=== PATIENT | male | born 1945 | race Caucasian/White ===

== ENCOUNTER 2018-03-04 10:17 | Inpatient (IN) | payer MEDICARE, MEDICAID ==
[~2018-03-04] VITALS: Ht 182.9 cm; Wt 67.0 kg
[~2018-03-04 10:17] MED LIST: AMLO-512 PO; ASCO500 PO; ASPI-825 PO; CARV25 PO; ESCI10TA PO; TAMS0.4C32 PO
[2018-03-04] MEDS ORDERED: OLANZapine 5 MG RAPDIS TABLET PO PRN (11:00)
[2018-03-04 11:07] LABS: AMPHET/METH SCREEN,URINE NEGATIVE (NEGATIVE); BARBITURATE SCREEN, URINE NEGATIVE (NEGATIVE); BENZODIAZEPINES SCREEN,URINE NEGATIVE (NEGATIVE); CANNABINOID SCREEN,URINE NEGATIVE (NEGATIVE); COCAINE SCREEN,URINE NEGATIVE (NEGATIVE); METHADONE SCREEN, URINE NEGATIVE (NEGATIVE); OPIATE SCREEN,URINE NEGATIVE (NEGATIVE); PHENCYCLIDINE SCREEN,URINE NEGATIVE (NEGATIVE)
[2018-03-04 11:11] LABS: BASOPHILS % (AUTO) 0.9 % (0.0-2.0); EOSINOPHILS % (AUTO) 2.7 % (1.0-6.0); HEMATOCRIT 34.8 % (41-53); HEMOGLOBIN 12.1 g/dL (13.5-17.5); LYMPHOCYTES # (AUTO) 3.8 K/uL (1.0-4.8); LYMPHOCYTES % (AUTO) 50.6 % (22.0-44.0); MEAN CORPUSCULAR HEMOGLOBIN 35.9 pg (26.0-34.0); MEAN CORPUSCULAR HGB CONC 34.7 G/dL (31.0-37.0); MEAN CORPUSCULAR VOLUME 104 fL (80-100); MONOCYTES # (AUTO) 0.9 K/uL (0.1-1.0); MONOCYTES % (AUTO) 12.5 % (2.0-9.0); NEUTROPHILS # (AUTO) 2.5 K/uL (1.8-7.7); NEUTROPHILS % (AUTO) 33.3 % (40.0-70.0); PLATELET COUNT (AUTO) 185 K/uL (150-450); RED BLOOD CELL COUNT(AUTO) 3.37 MIL/uL (4.50-5.90); RED CELL DISTRIBUTION WIDTH 14.2 % (11.5-14.5)
[2018-03-04 11:15] LABS: CALCIUM, TOTAL 7.9 mg/dL (8.8-10.5); CREATININE 1.4 mg/dL (0.60-1.30); POTASSIUM 4.2 mmol/L (3.5-5.1)
[2018-03-04 11:21] LABS: ALBUMIN 2.6 g/dL (3.4-5.0); BILIRUBIN,TOTAL 0.4 mg/dL (0.1-1.0)
[2018-03-04] MEDS ORDERED: LORazepam 1 MG TABLET PO ONE (12:30)
[2018-03-04] MEDS ORDERED: IBUPROFEN 600 MG TABLET PO ONE (12:30)
[2018-03-04 12:55] LABS: APPEARANCE,URINE CLEAR (CLEAR); BILIRUBIN,URINE NEGATIVE (NEGATIVE); GLUCOSE, URINE (UA) NEGATIVE (NEGATIVE); KETONES,URINE NEGATIVE (NEGATIVE); LEUKOCYTE ESTERASE ,URINE NEGATIVE (NEGATIVE); NITRATE,URINE NEGATIVE (NEGATIVE); OCCULT BLOOD,URINE NEGATIVE (NEGATIVE); PROTEIN,URINE NEGATIVE (NEGATIVE); UROBILINOGEN,URINE 0.2 mg/dL (<=1.0)
[2018-03-04] MEDS: TAMSULOSIN HCL 0.4 MG CAPSULE PO SCH (23:56)
[2018-03-05] MEDS: ASPIRIN 81 MG CHEWABLE TABLET PO SCH (08:06)
[2018-03-05 08:30] LABS: CHOL/HDL RATIO 1.2 (4.2-7.3); FREE T4 (FREE THYROXINE) 0.72 ng/dL (0.76-1.46); MAGNESIUM 1.4 mg/dL (1.80-2.40); THYROID STIMULATING HORMONE 2.22 uIU/mL (0.36-3.74)
[2018-03-05 08:40] VITALS: BP 135/75
[2018-03-05] MEDS ORDERED: AmLODIPine BESYLATE 2.5 MG TABLET PO SCH (09:00)
[2018-03-05] MEDS: ASCORBIC ACID 500 MG TABLET PO SCH (09:31)
[2018-03-05] MEDS: CARVEDILOL 6.25 MG TABLET PO SCH ×2 (09:31→17:00)
[2018-03-05 19:45] VITALS: BP 142/93
[2018-03-05 20:40] VITALS: BP 135/75
[2018-03-05] MEDS: TAMSULOSIN HCL 0.4 MG CAPSULE PO SCH (20:52)
[2018-03-05] MEDS ORDERED: PNEUMOCOCCAL VACCINE POLYVALENT 0.5 ML VIAL [PPSV23] IM ONE (21:15)
[2018-03-05 21:43] VITALS: BP 140/76
[2018-03-05 22:42] VITALS: BP 145/94
[2018-03-05 22:48] VITALS: BP 145/94
[2018-03-05] MEDS: IBUPROFEN 600 MG TABLET PO PRN (22:57)
[2018-03-06] VITALS (10 sets, daily range): BP systolic 133–153; BP diastolic 77–94
[2018-03-06] MEDS ORDERED: CloNIDine HCL 0.1 MG TABLET PO PRN (07:30)
[2018-03-06] MEDS ORDERED: CYANOCOBALAMIN 1,000 MCG/ML VIAL IM ONE (07:45)
[2018-03-06] MEDS: ASCORBIC ACID 500 MG TABLET PO SCH (08:54)
[2018-03-06] MEDS: MAGNESIUM OXIDE 400 MG TABLET PO SCH (08:54)
[2018-03-06] MEDS: BACITRACIN 28.4 GM OINTMENT TP SCH (08:57)
[2018-03-06] MEDS: ASPIRIN 81 MG CHEWABLE TABLET PO SCH (09:00)
[2018-03-06] MEDS: METOPROLOL SUCCINATE 25 MG ER TABLET PO SCH (09:33)
[2018-03-06] MEDS: FOLIC ACID 1 MG TABLET PO SCH (09:33)
[2018-03-06] MEDS: LORazepam 2 MG TABLET PO PRN ×2 (09:34→20:28)
[2018-03-06] MEDS: ACETAMINOPHEN 325 MG TABLET PO PRN (09:34)
[2018-03-06] MEDS: NICOTINE 21 MG/24 HOUR PATCH TD SCH (09:35)
[2018-03-06] MEDS: DUTASTERIDE 0.5 MG CAPSULE PO SCH (13:08)
[2018-03-06] MEDS: DILTIAZEM HCL CD 120 MG ER CAPSULE PO SCH (13:08)
[2018-03-06] MEDS: THIAMINE HCL 100 MG/ML 2ML VIAL IM SCH (16:17)
[2018-03-06] MEDS: TAMSULOSIN HCL 0.4 MG CAPSULE PO SCH (20:28)
[2018-03-07 01:00] VITALS: BP 117/70
[2018-03-07 04:40] VITALS: BP 149/88
[2018-03-07 08:34] VITALS: BP 120/82
[2018-03-07 08:37] VITALS: BP 120/82
[2018-03-07] MEDS: ASPIRIN 81 MG CHEWABLE TABLET PO SCH (09:00)
[2018-03-07] MEDS: DILTIAZEM HCL CD 120 MG ER CAPSULE PO SCH (09:19)
[2018-03-07] MEDS: METOPROLOL SUCCINATE 25 MG ER TABLET PO SCH (09:19)
[2018-03-07] MEDS: MAGNESIUM OXIDE 400 MG TABLET PO SCH (09:19)
[2018-03-07] MEDS: DUTASTERIDE 0.5 MG CAPSULE PO SCH (09:19)
[2018-03-07] MEDS: ASCORBIC ACID 500 MG TABLET PO SCH (09:19)
[2018-03-07] MEDS: NICOTINE 21 MG/24 HOUR PATCH TD SCH (09:20)
[2018-03-07] MEDS: FOLIC ACID 1 MG TABLET PO SCH (09:21)
[2018-03-07] MEDS: THIAMINE HCL 100 MG/ML 2ML VIAL IM SCH (09:23)
[2018-03-07] MEDS: BACITRACIN 28.4 GM OINTMENT TP SCH (09:35)
[2018-03-07] MEDS: IBUPROFEN 600 MG TABLET PO PRN (09:49)
[2018-03-07] MEDS: LORazepam 2 MG TABLET PO PRN (09:50)
[2018-03-07 16:27] VITALS: BP_SYST 127; BP_SYST 138; BP_DIAS 86; BP_DIAS 95
[2018-03-07] MEDS: TAMSULOSIN HCL 0.4 MG CAPSULE PO SCH (20:34)
[2018-03-08] VITALS: BP 140/83
[2018-03-08] MEDS: LORazepam 2 MG TABLET PO PRN (00:31)
[2018-03-08 01:35] VITALS: BP 140/83
[2018-03-08 08:00] VITALS: BP_SYST 146; BP_DIAS 79; BP_DIAS 95
[2018-03-08] MEDS: ASPIRIN 81 MG CHEWABLE TABLET PO SCH (09:00)
[2018-03-08] MEDS: MAGNESIUM OXIDE 400 MG TABLET PO SCH (09:14)
[2018-03-08] MEDS: METOPROLOL SUCCINATE 25 MG ER TABLET PO SCH (09:14)
[2018-03-08] MEDS: ESCITALOPRAM OXALATE 10 MG TABLET PO SCH (09:14)
[2018-03-08] MEDS: FOLIC ACID 1 MG TABLET PO SCH (09:14)
[2018-03-08] MEDS: ASCORBIC ACID 500 MG TABLET PO SCH (09:15)
[2018-03-08] MEDS: DUTASTERIDE 0.5 MG CAPSULE PO SCH (09:15)
[2018-03-08] MEDS: DILTIAZEM HCL CD 120 MG ER CAPSULE PO SCH (09:15)
[2018-03-08] MEDS: THIAMINE HCL 100 MG/ML 2ML VIAL IM SCH (09:16)
[2018-03-08] MEDS: BACITRACIN 28.4 GM OINTMENT TP SCH (09:16)
[2018-03-08] MEDS: NICOTINE 21 MG/24 HOUR PATCH TD SCH (09:16)
[2018-03-08 09:45] VITALS: BP 131/74
[2018-03-08 16:00] VITALS: BP 137/87
[2018-03-08 16:04] VITALS: BP 137/87
[2018-03-08] MEDS: TAMSULOSIN HCL 0.4 MG CAPSULE PO SCH (20:36)
[2018-03-09 03:19] VITALS: BP 140/81
[2018-03-09] MEDS: LORazepam 2 MG TABLET PO PRN ×3 (03:22→22:39)
[2018-03-09 08:25] VITALS: BP 131/86
[2018-03-09] MEDS: ASPIRIN 81 MG CHEWABLE TABLET PO SCH (09:00)
[2018-03-09] MEDS: THIAMINE HCL 100 MG TABLET PO SCH (09:07)
[2018-03-09] MEDS: ESCITALOPRAM OXALATE 10 MG TABLET PO SCH (09:07)
[2018-03-09] MEDS: METOPROLOL SUCCINATE 25 MG ER TABLET PO SCH (09:07)
[2018-03-09] MEDS: ASCORBIC ACID 500 MG TABLET PO SCH (09:07)
[2018-03-09] MEDS: DILTIAZEM HCL CD 120 MG ER CAPSULE PO SCH (09:08)
[2018-03-09] MEDS: MAGNESIUM OXIDE 400 MG TABLET PO SCH (09:08)
[2018-03-09] MEDS: FOLIC ACID 1 MG TABLET PO SCH (09:08)
[2018-03-09] MEDS: DUTASTERIDE 0.5 MG CAPSULE PO SCH (09:08)
[2018-03-09] MEDS: NICOTINE 21 MG/24 HOUR PATCH TD SCH (09:08)
[2018-03-09 16:04] VITALS: BP 130/87
[2018-03-09] MEDS: TAMSULOSIN HCL 0.4 MG CAPSULE PO SCH (20:34)
[2018-03-10 03:15] VITALS: BP 140/92
[2018-03-10] MEDS: LORazepam 2 MG TABLET PO PRN ×2 (03:15→20:06)
[2018-03-10] MEDS ORDERED: MAG HYDROX/AL HYDROX/SIMETH 30 ML SUSP UDCUP PO PRN (07:00)
[2018-03-10 08:15] VITALS: BP 136/80
[2018-03-10] MEDS: THIAMINE HCL 100 MG TABLET PO SCH (08:39)
[2018-03-10] MEDS: DILTIAZEM HCL CD 120 MG ER CAPSULE PO SCH (08:39)
[2018-03-10] MEDS: METOPROLOL SUCCINATE 25 MG ER TABLET PO SCH (08:39)
[2018-03-10] MEDS: DUTASTERIDE 0.5 MG CAPSULE PO SCH (08:39)
[2018-03-10] MEDS: FOLIC ACID 1 MG TABLET PO SCH (08:39)
[2018-03-10] MEDS: MAGNESIUM OXIDE 400 MG TABLET PO SCH (08:39)
[2018-03-10] MEDS: ESCITALOPRAM OXALATE 10 MG TABLET PO SCH (08:39)
[2018-03-10] MEDS: ASCORBIC ACID 500 MG TABLET PO SCH (08:39)
[2018-03-10] MEDS: NICOTINE 21 MG/24 HOUR PATCH TD SCH (08:40)
[2018-03-10] MEDS: ASPIRIN 81 MG CHEWABLE TABLET PO SCH (08:40)
[2018-03-10 09:35] LABS: ALBUMIN 2.4 g/dL (3.4-5.0); BILIRUBIN,TOTAL 0.2 mg/dL (0.1-1.0); CALCIUM, TOTAL 9.1 mg/dL (8.8-10.5); CREATININE 1.24 mg/dL (0.60-1.30); MAGNESIUM 1.8 mg/dL (1.80-2.40); POTASSIUM 4.2 mmol/L (3.5-5.1)
[2018-03-10 16:17] VITALS: BP 147/91
[2018-03-10] MEDS: TAMSULOSIN HCL 0.4 MG CAPSULE PO SCH (20:33)
[2018-03-10 21:12] VITALS: BP 160/99
[2018-03-10 22:28] VITALS: BP 142/78
[2018-03-11] MEDS: OMEPRAZOLE 20 MG CAPSULE PO SCH (06:16)
[2018-03-11 07:02] VITALS: BP 136/81
[2018-03-11 08:25] VITALS: BP 129/81
[2018-03-11] MEDS: MAGNESIUM OXIDE 400 MG TABLET PO SCH (08:38)
[2018-03-11] MEDS: NICOTINE 21 MG/24 HOUR PATCH TD SCH (08:39)
[2018-03-11] MEDS: THIAMINE HCL 100 MG TABLET PO SCH (08:39)
[2018-03-11] MEDS: FOLIC ACID 1 MG TABLET PO SCH (08:39)
[2018-03-11] MEDS: ESCITALOPRAM OXALATE 10 MG TABLET PO SCH (08:39)
[2018-03-11] MEDS: DILTIAZEM HCL CD 120 MG ER CAPSULE PO SCH (08:39)
[2018-03-11] MEDS: ASCORBIC ACID 500 MG TABLET PO SCH (08:39)
[2018-03-11] MEDS: DUTASTERIDE 0.5 MG CAPSULE PO SCH (08:39)
[2018-03-11] MEDS: METOPROLOL SUCCINATE 25 MG ER TABLET PO SCH (08:39)
[2018-03-11] MEDS: ASPIRIN 81 MG CHEWABLE TABLET PO SCH (08:50)
[2018-03-11] MEDS: LORazepam 2 MG TABLET PO PRN (08:50)
[2018-03-11 16:05] VITALS: BP 143/90
[2018-03-11 18:00] VITALS: BP 125/82
[2018-03-11] MEDS: ZOLPIDEM TARTRATE 10 MG TABLET PO PRN (20:13)
[2018-03-11] MEDS: TAMSULOSIN HCL 0.4 MG CAPSULE PO SCH (20:15)
[2018-03-11] MEDS: RIVAROXABAN 10 MG TABLET PO SCH (22:54)
[2018-03-12] MEDS: LORazepam 2 MG TABLET PO PRN ×3 (02:56→19:42)
[2018-03-12 02:57] VITALS: BP 149/96
[2018-03-12] MEDS: OMEPRAZOLE 20 MG CAPSULE PO SCH (06:31)
[2018-03-12] MEDS: MAGNESIUM OXIDE 400 MG TABLET PO SCH (08:22)
[2018-03-12] MEDS: ESCITALOPRAM OXALATE 10 MG TABLET PO SCH (08:22)
[2018-03-12] MEDS: FOLIC ACID 1 MG TABLET PO SCH (08:22)
[2018-03-12] MEDS: DUTASTERIDE 0.5 MG CAPSULE PO SCH (08:22)
[2018-03-12] MEDS: DILTIAZEM HCL CD 120 MG ER CAPSULE PO SCH (08:22)
[2018-03-12] MEDS: ASCORBIC ACID 500 MG TABLET PO SCH (08:22)
[2018-03-12] MEDS: THIAMINE HCL 100 MG TABLET PO SCH (08:22)
[2018-03-12] MEDS: METOPROLOL SUCCINATE 25 MG ER TABLET PO SCH (08:22)
[2018-03-12] MEDS: NICOTINE 21 MG/24 HOUR PATCH TD SCH (08:29)
[2018-03-12 08:30] VITALS: BP 128/76
[2018-03-12] MEDS: ASPIRIN 81 MG CHEWABLE TABLET PO SCH (08:30)
[2018-03-12] MEDS: CEPHALEXIN MONOHYDRATE 500 MG CAPSULE PO SCH ×3 (13:29→20:31)
[2018-03-12 16:30] VITALS: BP 127/81
[2018-03-12] MEDS: RIVAROXABAN 10 MG TABLET PO SCH (16:45)
[2018-03-12] MEDS: DOCUSATE SODIUM 250 MG CAPSULE PO PRN (20:00)
[2018-03-12] MEDS: TAMSULOSIN HCL 0.4 MG CAPSULE PO SCH (20:31)
[2018-03-13] MEDS: LORazepam 2 MG TABLET PO PRN ×2 (00:44→20:40)
[2018-03-13 01:02] VITALS: BP 138/90
[2018-03-13] MEDS: OMEPRAZOLE 20 MG CAPSULE PO SCH (06:35)
[2018-03-13 08:45] VITALS: BP 133/82
[2018-03-13] MEDS: ASPIRIN 81 MG CHEWABLE TABLET PO SCH (09:00)
[2018-03-13] MEDS: METOPROLOL SUCCINATE 25 MG ER TABLET PO SCH (09:01)
[2018-03-13] MEDS: MAGNESIUM OXIDE 400 MG TABLET PO SCH (09:01)
[2018-03-13] MEDS: DILTIAZEM HCL CD 120 MG ER CAPSULE PO SCH (09:01)
[2018-03-13] MEDS: CEPHALEXIN MONOHYDRATE 500 MG CAPSULE PO SCH ×4 (09:01→20:04)
[2018-03-13] MEDS: THIAMINE HCL 100 MG TABLET PO SCH (09:01)
[2018-03-13] MEDS: FOLIC ACID 1 MG TABLET PO SCH (09:01)
[2018-03-13] MEDS: ESCITALOPRAM OXALATE 10 MG TABLET PO SCH (09:01)
[2018-03-13] MEDS: DUTASTERIDE 0.5 MG CAPSULE PO SCH (09:01)
[2018-03-13] MEDS: ASCORBIC ACID 500 MG TABLET PO SCH (09:01)
[2018-03-13] MEDS: NICOTINE 21 MG/24 HOUR PATCH TD SCH (09:13)
[2018-03-13] MEDS: BACITRACIN 28.4 GM OINTMENT TP SCH (15:29)
[2018-03-13 16:28] VITALS: BP 135/79
[2018-03-13] MEDS: RIVAROXABAN 10 MG TABLET PO SCH (16:44)
[2018-03-13] MEDS: TAMSULOSIN HCL 0.4 MG CAPSULE PO SCH (20:04)
[2018-03-13 20:23] VITALS: BP 121/74
[2018-03-13] MEDS: ACETAMINOPHEN 325 MG TABLET PO PRN (20:51)
[2018-03-14] MEDS: LORazepam 2 MG TABLET PO PRN ×3 (03:46→14:17)
[2018-03-14] MEDS ORDERED: BISACODYL 5 MG EC TABLET PO PRN (07:00)
[2018-03-14] MEDS: OMEPRAZOLE 20 MG CAPSULE PO SCH (07:14)
[2018-03-14 09:00] VITALS: BP 137/78
[2018-03-14] MEDS: ESCITALOPRAM OXALATE 10 MG TABLET PO SCH (09:00)
[2018-03-14] MEDS: METOPROLOL SUCCINATE 25 MG ER TABLET PO SCH (09:00)
[2018-03-14] MEDS: ASPIRIN 81 MG CHEWABLE TABLET PO SCH (09:00)
[2018-03-14] MEDS: FOLIC ACID 1 MG TABLET PO SCH (09:00)
[2018-03-14] MEDS: THIAMINE HCL 100 MG TABLET PO SCH (09:00)
[2018-03-14] MEDS: ASCORBIC ACID 500 MG TABLET PO SCH (09:00)
[2018-03-14] MEDS: DILTIAZEM HCL CD 120 MG ER CAPSULE PO SCH (09:00)
[2018-03-14] MEDS: DUTASTERIDE 0.5 MG CAPSULE PO SCH (09:00)
[2018-03-14] MEDS: MAGNESIUM OXIDE 400 MG TABLET PO SCH (09:00)
[2018-03-14] MEDS: CEPHALEXIN MONOHYDRATE 500 MG CAPSULE PO SCH ×4 (09:01→22:15)
[2018-03-14] MEDS: BACITRACIN 28.4 GM OINTMENT TP SCH (09:08)
[2018-03-14] MEDS: NICOTINE 21 MG/24 HOUR PATCH TD SCH (09:08)
[2018-03-14 14:17] VITALS: BP 133/82
[2018-03-14] MEDS: ACETAMINOPHEN 325 MG TABLET PO PRN (14:17)
[2018-03-14 15:19] VITALS: BP 129/77
[2018-03-14] MEDS: RIVAROXABAN 10 MG TABLET PO SCH (16:58)
[2018-03-14 17:58] VITALS: BP 115/71
[2018-03-14] MEDS: TAMSULOSIN HCL 0.4 MG CAPSULE PO SCH (22:15)
[2018-03-15 00:37] VITALS: BP 148/85
[2018-03-15] MEDS: LORazepam 2 MG TABLET PO PRN ×3 (00:52→20:37)
[2018-03-15 01:37] VITALS: BP 148/85
[2018-03-15] MEDS: OMEPRAZOLE 20 MG CAPSULE PO SCH (06:46)
[2018-03-15] MEDS: ASPIRIN 81 MG CHEWABLE TABLET PO SCH (09:00)
[2018-03-15] MEDS: DUTASTERIDE 0.5 MG CAPSULE PO SCH (09:08)
[2018-03-15] MEDS: MAGNESIUM OXIDE 400 MG TABLET PO SCH (09:08)
[2018-03-15] MEDS: FOLIC ACID 1 MG TABLET PO SCH (09:08)
[2018-03-15] MEDS: DILTIAZEM HCL CD 120 MG ER CAPSULE PO SCH (09:08)
[2018-03-15] MEDS: ESCITALOPRAM OXALATE 10 MG TABLET PO SCH (09:08)
[2018-03-15] MEDS: CEPHALEXIN MONOHYDRATE 500 MG CAPSULE PO SCH (09:08)
[2018-03-15] MEDS: ASCORBIC ACID 500 MG TABLET PO SCH (09:09)
[2018-03-15 09:12] VITALS: BP 148/84
[2018-03-15] MEDS: ACETAMINOPHEN 325 MG TABLET PO PRN ×2 (09:12→15:48)
[2018-03-15] MEDS: METOPROLOL SUCCINATE 25 MG ER TABLET PO SCH (09:18)
[2018-03-15] MEDS: THIAMINE HCL 100 MG TABLET PO SCH (09:18)
[2018-03-15] MEDS: NICOTINE 21 MG/24 HOUR PATCH TD SCH (09:19)
[2018-03-15] MEDS: DOCUSATE SODIUM 250 MG CAPSULE PO PRN (10:19)
[2018-03-15] MEDS: BACITRACIN 28.4 GM OINTMENT TP SCH (13:00)
[2018-03-15] MEDS: RIVAROXABAN 10 MG TABLET PO SCH (16:36)
[2018-03-15 16:41] VITALS: BP 143/72
[2018-03-15] MEDS: TAMSULOSIN HCL 0.4 MG CAPSULE PO SCH (20:33)
[2018-03-16] MEDS: OMEPRAZOLE 20 MG CAPSULE PO SCH (07:28)
[2018-03-16] MEDS: DILTIAZEM HCL CD 120 MG ER CAPSULE PO SCH (08:36)
[2018-03-16] MEDS: ASCORBIC ACID 500 MG TABLET PO SCH (08:36)
[2018-03-16] MEDS: BACITRACIN 28.4 GM OINTMENT TP SCH (08:36)
[2018-03-16] MEDS: NICOTINE 21 MG/24 HOUR PATCH TD SCH (08:36)
[2018-03-16] MEDS: DOCUSATE SODIUM 250 MG CAPSULE PO PRN (08:37)
[2018-03-16] MEDS: THIAMINE HCL 100 MG TABLET PO SCH (08:37)
[2018-03-16] MEDS: MAGNESIUM OXIDE 400 MG TABLET PO SCH (08:37)
[2018-03-16] MEDS: LORazepam 2 MG TABLET PO PRN ×3 (08:37→20:02)
[2018-03-16] MEDS: ESCITALOPRAM OXALATE 10 MG TABLET PO SCH (08:37)
[2018-03-16] MEDS: DUTASTERIDE 0.5 MG CAPSULE PO SCH (08:37)
[2018-03-16] MEDS: FOLIC ACID 1 MG TABLET PO SCH (08:37)
[2018-03-16] MEDS: METOPROLOL SUCCINATE 25 MG ER TABLET PO SCH (08:37)
[2018-03-16 08:38] VITALS: BP 144/79
[2018-03-16] MEDS: ACETAMINOPHEN 325 MG TABLET PO PRN ×2 (08:38→15:52)
[2018-03-16] MEDS: RIVAROXABAN 10 MG TABLET PO SCH (16:31)
[2018-03-16 16:51] VITALS: BP 144/85
[2018-03-16] MEDS: TAMSULOSIN HCL 0.4 MG CAPSULE PO SCH (20:00)
[2018-03-17 00:24] VITALS: BP 152/80
[2018-03-17 00:44] VITALS: BP 143/77
[2018-03-17] MEDS: IBUPROFEN 600 MG TABLET PO PRN (00:44)
[2018-03-17] MEDS: ZOLPIDEM TARTRATE 10 MG TABLET PO PRN ×2 (01:45→21:12)
[2018-03-17 06:22] LABS: BASOPHILS % (AUTO) 0.6 % (0.0-2.0); EOSINOPHILS % (AUTO) 0.6 % (1.0-6.0); HEMATOCRIT 32.5 % (41-53); HEMOGLOBIN 11.1 g/dL (13.5-17.5); LYMPHOCYTES # (AUTO) 2.2 K/uL (1.0-4.8); LYMPHOCYTES % (AUTO) 18.7 % (22.0-44.0); MEAN CORPUSCULAR HEMOGLOBIN 35.2 pg (26.0-34.0); MEAN CORPUSCULAR VOLUME 104 fL (80-100); MONOCYTES # (AUTO) 1.8 K/uL (0.1-1.0); MONOCYTES % (AUTO) 15.8 % (2.0-9.0); NEUTROPHILS # (AUTO) 7.5 K/uL (1.8-7.7); NEUTROPHILS % (AUTO) 64.3 % (40.0-70.0); PLATELET COUNT (AUTO) 265 K/uL (150-450); RED BLOOD CELL COUNT(AUTO) 3.14 MIL/uL (4.50-5.90); RED CELL DISTRIBUTION WIDTH 14.2 % (11.5-14.5)
[2018-03-17] MEDS: OMEPRAZOLE 20 MG CAPSULE PO SCH (06:59)
[2018-03-17 08:14] LABS: ALBUMIN 2.3 g/dL (3.4-5.0); BILIRUBIN,TOTAL 0.3 mg/dL (0.1-1.0); CALCIUM, TOTAL 9.1 mg/dL (8.8-10.5); CREATININE 1.34 mg/dL (0.60-1.30); POTASSIUM 4.7 mmol/L (3.5-5.1)
[2018-03-17 09:00] VITALS: BP 124/89
[2018-03-17] MEDS: DUTASTERIDE 0.5 MG CAPSULE PO SCH ×2 (09:00→14:42)
[2018-03-17] MEDS: MAGNESIUM OXIDE 400 MG TABLET PO SCH ×2 (09:00→14:42)
[2018-03-17] MEDS: THIAMINE HCL 100 MG TABLET PO SCH ×2 (09:00→14:42)
[2018-03-17] MEDS: FOLIC ACID 1 MG TABLET PO SCH ×2 (09:00→14:42)
[2018-03-17] MEDS: ASCORBIC ACID 500 MG TABLET PO SCH ×2 (09:00→14:42)
[2018-03-17] MEDS: METOPROLOL SUCCINATE 25 MG ER TABLET PO SCH ×2 (09:00→14:42)
[2018-03-17] MEDS: ESCITALOPRAM OXALATE 10 MG TABLET PO SCH ×2 (09:00→14:42)
[2018-03-17] MEDS: DILTIAZEM HCL CD 120 MG ER CAPSULE PO SCH ×2 (09:00→14:42)
[2018-03-17] MEDS: NICOTINE 21 MG/24 HOUR PATCH TD SCH ×2 (09:00→14:43)
[2018-03-17] MEDS: BACITRACIN 28.4 GM OINTMENT TP SCH (09:10)
[2018-03-17] MEDS ORDERED: RINGERS SOLUTION,LACTATED 0 ML IV ONE (12:00)
[2018-03-17] MEDS: LORazepam 2 MG TABLET PO PRN ×2 (14:17→18:39)
[2018-03-17 14:18] VITALS: BP 136/90
[2018-03-17] MEDS: ACETAMINOPHEN 325 MG TABLET PO PRN (14:18)
[2018-03-17] MEDS: TAMSULOSIN HCL 0.4 MG CAPSULE PO SCH (14:42)
[2018-03-17] MEDS: RIVAROXABAN 10 MG TABLET PO SCH (17:20)
[2018-03-17 17:47] VITALS: BP 129/81
[2018-03-18] VITALS: BP 127/67
[2018-03-18] MEDS: OMEPRAZOLE 20 MG CAPSULE PO SCH (06:31)
[2018-03-18 06:50] LABS: CREATININE 1.32 mg/dL (0.60-1.30); MAGNESIUM 2.1 mg/dL (1.80-2.40); POTASSIUM 4.8 mmol/L (3.5-5.1)
[2018-03-18] MEDS: THIAMINE HCL 100 MG TABLET PO SCH (09:10)
[2018-03-18] MEDS: ESCITALOPRAM OXALATE 10 MG TABLET PO SCH (09:10)
[2018-03-18] MEDS: MAGNESIUM OXIDE 400 MG TABLET PO SCH (09:10)
[2018-03-18] MEDS: DUTASTERIDE 0.5 MG CAPSULE PO SCH (09:10)
[2018-03-18] MEDS: FOLIC ACID 1 MG TABLET PO SCH (09:11)
[2018-03-18] MEDS: BACITRACIN 28.4 GM OINTMENT TP SCH (09:11)
[2018-03-18] MEDS: DILTIAZEM HCL CD 120 MG ER CAPSULE PO SCH (09:11)
[2018-03-18] MEDS: ASCORBIC ACID 500 MG TABLET PO SCH (09:11)
[2018-03-18] MEDS: METOPROLOL SUCCINATE 25 MG ER TABLET PO SCH (09:11)
[2018-03-18] MEDS: NICOTINE 21 MG/24 HOUR PATCH TD SCH (09:18)
[2018-03-18 09:44] VITALS: BP 128/80
[2018-03-18] MEDS: LORazepam 2 MG TABLET PO PRN ×2 (10:05→17:02)
[2018-03-18] MEDS: DOCUSATE SODIUM 250 MG CAPSULE PO PRN (10:05)
[2018-03-18] MEDS: ACETAMINOPHEN 325 MG TABLET PO PRN ×2 (10:05→16:24)
[2018-03-18 11:05] VITALS: BP 124/80
[2018-03-18 16:24] VITALS: BP 111/66
[2018-03-18] MEDS: RIVAROXABAN 10 MG TABLET PO SCH (16:40)
[2018-03-18] MEDS: TAMSULOSIN HCL 0.4 MG CAPSULE PO SCH (20:30)
[2018-03-18] MEDS: ZOLPIDEM TARTRATE 10 MG TABLET PO PRN (20:55)
[2018-03-19 01:10] VITALS: BP 144/82
[2018-03-19] MEDS: ACETAMINOPHEN 325 MG TABLET PO PRN ×2 (01:18→20:04)
[2018-03-19] MEDS: OMEPRAZOLE 20 MG CAPSULE PO SCH (06:41)
[2018-03-19] MEDS: METOPROLOL SUCCINATE 25 MG ER TABLET PO SCH (08:16)
[2018-03-19] MEDS: ASCORBIC ACID 500 MG TABLET PO SCH (08:16)
[2018-03-19] MEDS: FOLIC ACID 1 MG TABLET PO SCH (08:16)
[2018-03-19] MEDS: MAGNESIUM OXIDE 400 MG TABLET PO SCH (08:16)
[2018-03-19] MEDS: LEVOFLOXACIN 250 MG TABLET PO SCH (08:16)
[2018-03-19] MEDS: ESCITALOPRAM OXALATE 10 MG TABLET PO SCH (08:16)
[2018-03-19] MEDS: THIAMINE HCL 100 MG TABLET PO SCH (08:16)
[2018-03-19] MEDS: DUTASTERIDE 0.5 MG CAPSULE PO SCH (08:16)
[2018-03-19] MEDS: DILTIAZEM HCL CD 120 MG ER CAPSULE PO SCH (08:16)
[2018-03-19] MEDS: BACITRACIN 28.4 GM OINTMENT TP SCH (08:17)
[2018-03-19] MEDS: NICOTINE 21 MG/24 HOUR PATCH TD SCH (08:17)
[2018-03-19 12:07] VITALS: BP 134/84
[2018-03-19] MEDS: LORazepam 2 MG TABLET PO PRN (12:07)
[2018-03-19 13:14] VITALS: BP 134/84
[2018-03-19 16:27] VITALS: BP 128/76
[2018-03-19 20:00] VITALS: BP 121/71
[2018-03-19] MEDS: TAMSULOSIN HCL 0.4 MG CAPSULE PO SCH (20:03)
[2018-03-19] MEDS: ZOLPIDEM TARTRATE 10 MG TABLET PO PRN (20:04)
[2018-03-20] MEDS: OMEPRAZOLE 20 MG CAPSULE PO SCH (06:45)
[2018-03-20 07:20] LABS: CALCIUM, TOTAL 9.4 mg/dL (8.8-10.5); CREATININE 1.38 mg/dL (0.60-1.30); PHOSPHORUS 3.8 mg/dL (2.5-4.9); POTASSIUM 4.5 mmol/L (3.5-5.1)
[2018-03-20 08:30] VITALS: BP 160/100
[2018-03-20] MEDS: MAGNESIUM OXIDE 400 MG TABLET PO SCH (08:34)
[2018-03-20] MEDS: DUTASTERIDE 0.5 MG CAPSULE PO SCH (08:34)
[2018-03-20] MEDS: METOPROLOL SUCCINATE 25 MG ER TABLET PO SCH (08:34)
[2018-03-20] MEDS: ASCORBIC ACID 500 MG TABLET PO SCH (08:34)
[2018-03-20] MEDS: BACITRACIN 28.4 GM OINTMENT TP SCH (08:34)
[2018-03-20] MEDS: LEVOFLOXACIN 250 MG TABLET PO SCH (08:34)
[2018-03-20] MEDS: ESCITALOPRAM OXALATE 10 MG TABLET PO SCH (08:34)
[2018-03-20] MEDS: THIAMINE HCL 100 MG TABLET PO SCH (08:34)
[2018-03-20] MEDS: FOLIC ACID 1 MG TABLET PO SCH (08:34)
[2018-03-20] MEDS: NICOTINE 21 MG/24 HOUR PATCH TD SCH (08:35)
[2018-03-20] MEDS: DILTIAZEM HCL CD 120 MG ER CAPSULE PO SCH ×2 (08:35→11:00)
[2018-03-20] MEDS ORDERED: FentaNYL CITRATE-PF 100 MCG/2 ML VIAL IVP ONE (12:00)
[2018-03-20] MEDS ORDERED: MIDAZOLAM HCL 2 MG/2 ML VIAL IVP ONE (12:00)
[2018-03-20] MEDS ORDERED: SODIUM CHLORIDE 0.9% 1,000 ML IV ONE (14:15)
[2018-03-20] MEDS ORDERED: BACITRACIN 28.4 GM OINTMENT TP ONE (14:56)
[2018-03-20] MEDS ORDERED: HYDROmorphone 2 MG/ML SYRINGE IVP PRN (15:15)
[2018-03-20] MEDS ORDERED: FentaNYL CITRATE-PF 100 MCG/2 ML VIAL IVP PRN (15:15)
[2018-03-20 17:00] VITALS: BP 149/106
[2018-03-20] MEDS: SULFAMETHOX/TRIMETH DS 800-160 MG/TABLET PO SCH (17:00)
[2018-03-20] MEDS ORDERED: BACITRACIN 28.4 GM OINTMENT TP SCH (17:00)
[2018-03-20] MEDS: NEOMYCIN/BACITRACIN/POLYMYXIN B 30 GM OINTMENT TP SCH (17:00)
[2018-03-20] MEDS ORDERED: ESCITALOPRAM OXALATE 10 MG TABLET PO SCH (17:00)
[2018-03-20] MEDS: ACETAMINOPHEN 325 MG TABLET PO PRN (17:14)
[2018-03-20] MEDS: LORazepam 2 MG TABLET PO PRN ×2 (19:40→19:49)
[2018-03-20] MEDS: OXYGEN THERAPY IH SCH (20:00)
[2018-03-20] MEDS: TAMSULOSIN HCL 0.4 MG CAPSULE PO SCH (20:10)
[2018-03-20] MEDS ORDERED: ONDANSETRON HCL 4 MG/2 ML VIAL IVP ONE (21:00)
[2018-03-20] MEDS ORDERED: LIDOCAINE/PF 2% 5 ML VIAL IM ONE (21:00)
[2018-03-20] MEDS ORDERED: METOCLOPRAMIDE HCL 5 MG/ML 2 ML VIAL IVP ONE (21:00)
[2018-03-20] MEDS ORDERED: PROPOFOL 1% 20 ML VIAL IVP ONE (21:00)
[2018-03-21] MEDS: ZOLPIDEM TARTRATE 10 MG TABLET PO PRN ×2 (01:02→23:07)
[2018-03-21 01:07] VITALS: BP 111/69
[2018-03-21] MEDS: OMEPRAZOLE 20 MG CAPSULE PO SCH (06:49)
[2018-03-21 07:11] LABS: BASOPHILS % (AUTO) 0.8 % (0.0-2.0); EOSINOPHILS % (AUTO) 2.2 % (1.0-6.0); HEMATOCRIT 31.4 % (41-53); HEMOGLOBIN 10.7 g/dL (13.5-17.5); LYMPHOCYTES % (AUTO) 24.5 % (22.0-44.0); MEAN CORPUSCULAR HEMOGLOBIN 35.3 pg (26.0-34.0); MEAN CORPUSCULAR HGB CONC 34.3 G/dL (31.0-37.0); MEAN CORPUSCULAR VOLUME 103 fL (80-100); MONOCYTES # (AUTO) 0.9 K/uL (0.1-1.0); MONOCYTES % (AUTO) 10.5 % (2.0-9.0); NEUTROPHILS # (AUTO) 5.1 K/uL (1.8-7.7); PLATELET COUNT (AUTO) 346 K/uL (150-450); RED BLOOD CELL COUNT(AUTO) 3.05 MIL/uL (4.50-5.90); RED CELL DISTRIBUTION WIDTH 14.3 % (11.5-14.5)
[2018-03-21 07:42] LABS: ALBUMIN 2.4 g/dL (3.4-5.0); BILIRUBIN,TOTAL 0.2 mg/dL (0.1-1.0); CALCIUM, TOTAL 9.3 mg/dL (8.8-10.5); CREATININE 1.45 mg/dL (0.60-1.30); POTASSIUM 4.6 mmol/L (3.5-5.1); TOTAL PROTEIN, SERUM 5.9 g/dL (6.4-8.2)
[2018-03-21] MEDS: OXYGEN THERAPY IH SCH ×2 (08:00→20:00)
[2018-03-21] MEDS: LEVOFLOXACIN 250 MG TABLET PO SCH (09:00)
[2018-03-21] MEDS: SULFAMETHOX/TRIMETH DS 800-160 MG/TABLET PO SCH ×2 (09:00→17:00)
[2018-03-21] MEDS: DILTIAZEM HCL CD 120 MG ER CAPSULE PO SCH (09:19)
[2018-03-21] MEDS: MAGNESIUM OXIDE 400 MG TABLET PO SCH (09:20)
[2018-03-21] MEDS: METOPROLOL SUCCINATE 25 MG ER TABLET PO SCH (09:20)
[2018-03-21] MEDS: FOLIC ACID 1 MG TABLET PO SCH (09:20)
[2018-03-21] MEDS: DUTASTERIDE 0.5 MG CAPSULE PO SCH (09:23)
[2018-03-21] MEDS: THIAMINE HCL 100 MG TABLET PO SCH (09:24)
[2018-03-21] MEDS: ASCORBIC ACID 500 MG TABLET PO SCH (09:27)
[2018-03-21] MEDS: NICOTINE 21 MG/24 HOUR PATCH TD SCH (09:28)
[2018-03-21] MEDS: NEOMYCIN/BACITRACIN/POLYMYXIN B 30 GM OINTMENT TP SCH ×2 (09:29→17:39)
[2018-03-21] MEDS: DOCUSATE SODIUM 250 MG CAPSULE PO PRN ×2 (10:15→20:22)
[2018-03-21] MEDS: ESCITALOPRAM OXALATE 10 MG TABLET PO SCH (10:16)
[2018-03-21 11:32] VITALS: BP 110/79
[2018-03-21 16:13] VITALS: BP 128/79
[2018-03-21] MEDS ORDERED: BACITRACIN 28.4 GM OINTMENT TP SCH (17:00)
[2018-03-21] MEDS: TAMSULOSIN HCL 0.4 MG CAPSULE PO SCH (20:15)
[2018-03-21] MEDS: LORazepam 2 MG TABLET PO PRN (20:22)
[2018-03-22 00:14] VITALS: BP 138/83
[2018-03-22] MEDS: OMEPRAZOLE 20 MG CAPSULE PO SCH (06:42)
[2018-03-22 06:58] LABS: CALCIUM, TOTAL 8.9 mg/dL (8.8-10.5); CREATININE 1.64 mg/dL (0.60-1.30); PHOSPHORUS 3.8 mg/dL (2.5-4.9); POTASSIUM 4.3 mmol/L (3.5-5.1)
[2018-03-22] MEDS: OXYGEN THERAPY IH SCH (08:00)
[2018-03-22] MEDS: DILTIAZEM HCL CD 120 MG ER CAPSULE PO SCH (09:37)
[2018-03-22] MEDS: DUTASTERIDE 0.5 MG CAPSULE PO SCH (09:37)
[2018-03-22] MEDS: NICOTINE 21 MG/24 HOUR PATCH TD SCH (09:37)
[2018-03-22] MEDS: SULFAMETHOX/TRIMETH DS 800-160 MG/TABLET PO SCH (09:37)
[2018-03-22] MEDS: FOLIC ACID 1 MG TABLET PO SCH (09:37)
[2018-03-22] MEDS: MAGNESIUM OXIDE 400 MG TABLET PO SCH (09:37)
[2018-03-22] MEDS: METOPROLOL SUCCINATE 25 MG ER TABLET PO SCH (09:38)
[2018-03-22] MEDS: ESCITALOPRAM OXALATE 10 MG TABLET PO SCH (09:38)
[2018-03-22] MEDS: ASCORBIC ACID 500 MG TABLET PO SCH (09:38)
[2018-03-22] MEDS: LEVOFLOXACIN 250 MG TABLET PO SCH (09:38)
[2018-03-22] MEDS: THIAMINE HCL 100 MG TABLET PO SCH (09:38)
[2018-03-22] MEDS: NEOMYCIN/BACITRACIN/POLYMYXIN B 30 GM OINTMENT TP SCH ×2 (09:39→17:18)
[2018-03-22 13:26] VITALS: BP 145/87
[2018-03-22 16:54] VITALS: BP 123/75
[2018-03-22] MEDS: TAMSULOSIN HCL 0.4 MG CAPSULE PO SCH (20:22)
[2018-03-22] MEDS: ZOLPIDEM TARTRATE 10 MG TABLET PO PRN (20:26)
[2018-03-22] MEDS: DOCUSATE SODIUM 250 MG CAPSULE PO PRN (20:26)
[2018-03-23 00:08] VITALS: BP 133/76
[2018-03-23] MEDS: OMEPRAZOLE 20 MG CAPSULE PO SCH (06:31)
[2018-03-23 07:25] LABS: CALCIUM, TOTAL 9.2 mg/dL (8.8-10.5); CREATININE 1.41 mg/dL (0.60-1.30); POTASSIUM 4.4 mmol/L (3.5-5.1)
[2018-03-23 09:00] VITALS: BP 130/77
[2018-03-23] MEDS: METOPROLOL SUCCINATE 25 MG ER TABLET PO SCH (10:09)
[2018-03-23] MEDS: FOLIC ACID 1 MG TABLET PO SCH (10:09)
[2018-03-23] MEDS: THIAMINE HCL 100 MG TABLET PO SCH (10:09)
[2018-03-23] MEDS: DILTIAZEM HCL CD 120 MG ER CAPSULE PO SCH (10:09)
[2018-03-23] MEDS: DUTASTERIDE 0.5 MG CAPSULE PO SCH (10:09)
[2018-03-23] MEDS: MAGNESIUM OXIDE 400 MG TABLET PO SCH (10:10)
[2018-03-23] MEDS: LEVOFLOXACIN 250 MG TABLET PO SCH (10:10)
[2018-03-23] MEDS: ESCITALOPRAM OXALATE 10 MG TABLET PO SCH (10:10)
[2018-03-23] MEDS: ASCORBIC ACID 500 MG TABLET PO SCH (10:10)
[2018-03-23] MEDS: NEOMYCIN/BACITRACIN/POLYMYXIN B 30 GM OINTMENT TP SCH ×2 (10:11→17:41)
[2018-03-23] MEDS: NICOTINE 21 MG/24 HOUR PATCH TD SCH (10:12)
[2018-03-23 16:54] VITALS: BP 136/83
[2018-03-23] MEDS: LORazepam 2 MG TABLET PO PRN (18:50)
[2018-03-23] MEDS: DOCUSATE SODIUM 250 MG CAPSULE PO PRN (21:01)
[2018-03-23] MEDS: ZOLPIDEM TARTRATE 10 MG TABLET PO PRN (21:01)
[2018-03-23] MEDS: TAMSULOSIN HCL 0.4 MG CAPSULE PO SCH (21:01)
[2018-03-24] MEDS: OMEPRAZOLE 20 MG CAPSULE PO SCH (06:03)
[2018-03-24 06:10] VITALS: BP 134/72
[2018-03-24 07:23] LABS: CALCIUM, TOTAL 9.3 mg/dL (8.8-10.5); CREATININE 1.32 mg/dL (0.60-1.30); PHOSPHORUS 3.9 mg/dL (2.5-4.9); POTASSIUM 3.8 mmol/L (3.5-5.1)
[2018-03-24 08:10] VITALS: BP 155/89
[2018-03-24] MEDS: THIAMINE HCL 100 MG TABLET PO SCH (08:59)
[2018-03-24] MEDS: ASCORBIC ACID 500 MG TABLET PO SCH (08:59)
[2018-03-24] MEDS: MAGNESIUM OXIDE 400 MG TABLET PO SCH (08:59)
[2018-03-24] MEDS: DUTASTERIDE 0.5 MG CAPSULE PO SCH (08:59)
[2018-03-24] MEDS: DILTIAZEM HCL CD 120 MG ER CAPSULE PO SCH (08:59)
[2018-03-24] MEDS: ESCITALOPRAM OXALATE 10 MG TABLET PO SCH (08:59)
[2018-03-24] MEDS: METOPROLOL SUCCINATE 25 MG ER TABLET PO SCH (08:59)
[2018-03-24] MEDS: FOLIC ACID 1 MG TABLET PO SCH (08:59)
[2018-03-24] MEDS: NICOTINE 21 MG/24 HOUR PATCH TD SCH (09:19)
[2018-03-24] MEDS: NEOMYCIN/BACITRACIN/POLYMYXIN B 30 GM OINTMENT TP SCH ×2 (11:02→16:53)
[2018-03-24 16:45] VITALS: BP 124/74
[2018-03-24] MEDS ORDERED: RIVAROXABAN 10 MG TABLET PO SCH (17:30)
[2018-03-24] MEDS: TAMSULOSIN HCL 0.4 MG CAPSULE PO SCH (21:09)
[2018-03-24] MEDS: ZOLPIDEM TARTRATE 10 MG TABLET PO PRN (21:12)
[2018-03-25] MEDS: LORazepam 2 MG TABLET PO PRN (05:44)
[2018-03-25] MEDS: OMEPRAZOLE 20 MG CAPSULE PO SCH (06:32)
[2018-03-25] MEDS: METOPROLOL SUCCINATE 25 MG ER TABLET PO SCH (08:27)
[2018-03-25] MEDS: ASCORBIC ACID 500 MG TABLET PO SCH (08:27)
[2018-03-25] MEDS: THIAMINE HCL 100 MG TABLET PO SCH (08:27)
[2018-03-25] MEDS: DUTASTERIDE 0.5 MG CAPSULE PO SCH (08:27)
[2018-03-25] MEDS: DILTIAZEM HCL CD 120 MG ER CAPSULE PO SCH (08:27)
[2018-03-25] MEDS: MAGNESIUM OXIDE 400 MG TABLET PO SCH (08:27)
[2018-03-25] MEDS: ESCITALOPRAM OXALATE 10 MG TABLET PO SCH (08:27)
[2018-03-25] MEDS: FOLIC ACID 1 MG TABLET PO SCH (08:28)
[2018-03-25 08:30] VITALS: BP 144/98
[2018-03-25] MEDS: NICOTINE 21 MG/24 HOUR PATCH TD SCH (08:32)
[2018-03-25] MEDS: DOCUSATE SODIUM 250 MG CAPSULE PO PRN (09:17)
[2018-03-25] MEDS ORDERED: RIVA10 PO (11:58)
[2018-03-25] MEDS ORDERED: THIA100T67 PO (11:58)
[2018-03-25] MEDS ORDERED: FOLI1 PO (11:58)
[2018-03-25] MEDS ORDERED: METO25XL PO (11:58)
[2018-03-25] MEDS ORDERED: OMEP20 PO (11:58)
[2018-03-25] MEDS ORDERED: DILT-39 PO (11:58)
[2018-03-25] MEDS ORDERED: MAGN400T25 PO (11:58)
[2018-03-25] MEDS ORDERED: DUTA.5 PO (11:58)
[2018-03-25] MEDS: NEOMYCIN/BACITRACIN/POLYMYXIN B 30 GM OINTMENT TP SCH (12:15)
== END 2018-03-25 14:10 | disposition home or self-care (01) | DRG 876 ==
LOC: EMS 10:17 → B3A 03-05 15:55 → B2X 03-05 19:36 → 3EX 03-11 17:31
PROVIDERS: ADMIT Psychiatry & Neurology Psychiatry; ATTEND Psychiatry & Neurology Psychiatry
PROC: 5A09357 Assistance with Respiratory Ventilation, Less than 24 Consecutive Hours, Continuous Positive Airway Pressure (ICD-10-PCS; 2018-03-12)
PROC: 5A09357 Assistance with Respiratory Ventilation, Less than 24 Consecutive Hours, Continuous Positive Airway Pressure (ICD-10-PCS; 2018-03-14)
PROC: 5A09357 Assistance with Respiratory Ventilation, Less than 24 Consecutive Hours, Continuous Positive Airway Pressure (ICD-10-PCS; 2018-03-15)
PROC: 5A09357 Assistance with Respiratory Ventilation, Less than 24 Consecutive Hours, Continuous Positive Airway Pressure (ICD-10-PCS; 2018-03-16)
PROC: 5A09357 Assistance with Respiratory Ventilation, Less than 24 Consecutive Hours, Continuous Positive Airway Pressure (ICD-10-PCS; 2018-03-20)
PROC: 0JB50ZZ Excision of Left Neck Subcutaneous Tissue and Fascia, Open Approach (ICD-10-PCS; principal; 2018-03-20 14:30)
PROC: 5A09357 Assistance with Respiratory Ventilation, Less than 24 Consecutive Hours, Continuous Positive Airway Pressure (ICD-10-PCS; 2018-03-22)
PROC: 5A09357 Assistance with Respiratory Ventilation, Less than 24 Consecutive Hours, Continuous Positive Airway Pressure (ICD-10-PCS; 2018-03-23)
PROC: 5A09357 Assistance with Respiratory Ventilation, Less than 24 Consecutive Hours, Continuous Positive Airway Pressure (ICD-10-PCS; 2018-03-24)
DX: F32.9 Major depressive disorder, single episode, unspecified (principal); E43 Unspecified severe protein-calorie malnutrition; N17.9 Acute kidney failure, unspecified; N18.3 Chronic kidney disease, stage 3 (moderate); I42.9 Cardiomyopathy, unspecified; L03.90 Cellulitis, unspecified; I43 Cardiomyopathy in diseases classified elsewhere; E83.42 Hypomagnesemia; D50.9 Iron deficiency anemia, unspecified; D53.9 Nutritional anemia, unspecified; F10.10 Alcohol abuse, uncomplicated; F12.90 Cannabis use, unspecified, uncomplicated; G47.33 Obstructive sleep apnea (adult) (pediatric); I48.0 Paroxysmal atrial fibrillation; K21.9 Gastro-esophageal reflux disease without esophagitis; Z79.01 Long term (current) use of anticoagulants; K59.00 Constipation, unspecified; M17.10 Unilateral primary osteoarthritis, unspecified knee; I49.5 Sick sinus syndrome; F17.210 Nicotine dependence, cigarettes, uncomplicated; I13.10 Hypertensive heart and chronic kidney disease without heart failure, with stage 1 through stage 4 chronic kidney disease, or unspecified chronic kidney disease; M18.9 Osteoarthritis of first carpometacarpal joint, unspecified; M19.032 Primary osteoarthritis, left wrist; N40.0 Benign prostatic hyperplasia without lower urinary tract symptoms; N43.3 Hydrocele, unspecified; Z59.9 Problem related to housing and economic circumstances, unspecified; Z78.1 Physical restraint status; Z82.49 Family history of ischemic heart disease and other diseases of the circulatory system; Z91.19 Patient's noncompliance with other medical treatment and regimen; Z87.442 Personal history of urinary calculi; Z85.72 Personal history of non-Hodgkin lymphomas; Z71.6 Tobacco abuse counseling; Z71.41 Alcohol abuse counseling and surveillance of alcoholic; Z71.51 Drug abuse counseling and surveillance of drug abuser; Z28.21 Immunization not carried out because of patient refusal
CPT/HCPCS: 76700; 80074; 83735; 84100; 84439; 84443; 86592; 87070; 87081; 87205; 88304; 94660; 97161; 97530; 99406; G0238; G0378; G0480; J0690; J2250; J2405; J2704; J2765; J3010; J3411; J3420; J3490; J7120